=== PATIENT | male | born 1990 | race African-American/Black ===

== ENCOUNTER 2017-07-07 05:06 | Emergency (ER) | payer SELFPAY ==
[~2017-07-07] VITALS: Ht 198.1 cm; Wt 103.0 kg
[2017-07-07 05:26] VITALS: BP 122/65; TEMP 98.2
[2017-07-07 06:05] VITALS: PULSE 80
== END 2017-07-07 06:06 | disposition home or self-care (01) ==
LOC: COL.ER 05:06
DX: J45.909 Unspecified asthma, uncomplicated (principal); F17.200 Nicotine dependence, unspecified, uncomplicated
CPT/HCPCS: J7512